=== PATIENT | male | born 1975 | race African-American/Black ===

== ENCOUNTER 2020-08-28 11:37 | Inpatient (IN) | payer SELFPAY ==
[~2020-08-28] VITALS: Ht 177.8 cm; Wt 99.7 kg
[2020-08-28] VITALS (38 sets, daily range): BP systolic 78–219; BP diastolic 63–153; Ht 177.8 cm; Wt 99.7 kg
--- NOTE | 2020-08-28 11:38 | NUR ---
SALINE LOCK IN PLACE BY EMS. LEFT AC 20GA.
[2020-08-28 12:04] LABS: BASOPHILS 0.1 % (0-2); EOSINOPHILS 0.4 % (0-7); HEMATOCRIT 50.5 % (42.0-54.0); HEMOGLOBIN 16.8 g/dL (13.5-17.5); IMMATURE GRANULOCYTES 0.1 % (0-5); LYMPHOCYTE ABS# 3.81 10x3/uL (1.32-3.57); LYMPHOCYTES 41.6 % (15-50); MCH 30.1 pg (26.0-34.0); MCHC 33.3 g/dL (31.0-37.0); MCV 90.3 fL (80.0-100.0); MONOCYTES 5.2 % (2-11); NEUTROPHIL ABS# 4.81 10x3/uL (1.78-5.38); NEUTROPHILS 52.6 % (40-80); PLATELET COUNT 268 10x3/uL (130-400); RBC 5.59 10x6/uL (4.20-6.10); RDW 13.3 % (11.5-14.5); WBC 9.2 10x3/uL (4.8-10.8)
[2020-08-28 12:22] LABS: CALC OSMOLALITY 269 mosm/kg (275-300); CALCIUM 9.4 mg/dL (8.5-10.1); CARBON DIOXIDE 25.4 mmol/L (21.0-32.0); CHLORIDE - SERUM 100 mmol/L (98-107); CREATININE - SERUM 1.7 mg/dL (0.6-1.3); GLUCOSE 129 mg/dL (74-106); POTASSIUM - SERUM 4.3 mmol/L (3.5-5.1); SODIUM 134 mmol/L (136-145); UREA NITROGEN 12 mg/dL (7-18); eGFR NON AFRICAN AMERICAN 46 mL/min (90-120)
[2020-08-28 12:27] LABS: ALBUMIN 3.7 g/dL (3.4-5.0); ALKALINE PHOSPHATASE 90 U/L (30-120); ALT (SGPT) 26 U/L (10-68); AMYLASE - SERUM 101 U/L (25-115); LIPASE 88 U/L (73-393); PROTEIN - SERUM 8.1 g/dL (6.4-8.2); TROPONIN-I < 0.017 ng/mL (0.000-0.060)
--- NOTE | 2020-08-28 13:05 | NUR ---
TO CT VIA WHEELCHAIR.
[2020-08-28 14:47] LABS: BILIRUBIN NEGATIVE (NEGATIVE); KETONE NEGATIVE (NEGATIVE); NITRITE NEGATIVE (NEGATIVE); UROBILINOGEN NORMAL mg/dL (< 2)
--- NOTE | 2020-08-28 15:50 | NUR ---
NIPRIDE DRIP STARTED TO LEFT AC SITE AT 0.25MCG/KG/MIN (3.2 ML/HR VIA PUMP). BP
--- NOTE | 2020-08-28 15:58 | NUR ---
NIPRIDE ICREASED TO .3MCG/KG/MIN. BP 152/118. TEACHING ON HYPERTENSIVE CRISIS, ADMISSION TO ICU DUE TO NIPRIDE DRIP AND RISKS FOR KIDNEY DAMAGE, HEART DISEASE AND STROKE WITH HIS LEVEL OF HTN.
--- NOTE | 2020-08-28 16:05 | NUR ---
BP 170/116. NIPRIDE INCREASED TO .75MCG/KG/MIN.
--- NOTE | 2020-08-28 16:10 | NUR ---
NIPRIDE INCREASED TO 1.25MCG/KG/MIN. BP 190/118.
--- NOTE | 2020-08-28 16:15 | NUR ---
BP 157/91. NO CHANGE TO NIPRIDE DRIP.
--- NOTE | 2020-08-28 16:30 | NUR ---
BP 143/92. NO CHANGE IN NIPRIDE DRIP.
[2020-08-28] MEDS ORDERED: LISINOPRIL10 MG PO (17:13)
--- NOTE | 2020-08-28 17:55 | NUR ---
DR TURPIN CALLED GIVEN UPDATE REGAURDING CONSULT. NO NEW ORDERS RECEIVED
[2020-08-29] VITALS (45 sets, daily range): BP systolic 118–166; BP diastolic 63–103
[2020-08-29 03:49] LABS: UDS - AMPHET POSITIVE QUAL (NEGATIVE); UDS - BARB NEGATIVE QUAL (NEGATIVE); UDS - BENZO NEGATIVE QUAL (NEGATIVE); UDS - COCAINE NEGATIVE QUAL (NEGATIVE); UDS - OPIATE POSITIVE QUAL (NEGATIVE); UDS - PCP NEGATIVE QUAL (NEGATIVE); UDS - THC POSITIVE QUAL (NEGATIVE)
[2020-08-29 05:25] LABS: BASOPHILS 0.2 % (0-2); HEMATOCRIT 44.6 % (42.0-54.0); HEMOGLOBIN 14.5 g/dL (13.5-17.5); IMMATURE GRANULOCYTES 0.1 % (0-5); LYMPHOCYTE ABS# 3.91 10x3/uL (1.32-3.57); LYMPHOCYTES 41.6 % (15-50); MCH 29.3 pg (26.0-34.0); MCHC 32.5 g/dL (31.0-37.0); MCV 90.1 fL (80.0-100.0); MEAN PLATELET VOLUME 13.2 fL (7.4-10.4); MONOCYTES 9.6 % (2-11); NEUTROPHIL ABS# 4.46 10x3/uL (1.78-5.38); NEUTROPHILS 47.5 % (40-80); PLATELET COUNT 271 10x3/uL (130-400); RBC 4.95 10x6/uL (4.20-6.10); RDW 13.7 % (11.5-14.5); WBC 9.4 10x3/uL (4.8-10.8)
[2020-08-29 05:55] LABS: ANION GAP 12.8 mmol/L (8-16); CALCIUM 8.8 mg/dL (8.5-10.1); CARBON DIOXIDE 23.8 mmol/L (21.0-32.0); CREATININE - SERUM 1.6 mg/dL (0.6-1.3); MAGNESIUM - SERUM 1.9 mg/dL (1.8-2.4); PHOSPHOROUS 2.6 mg/dL (2.5-4.9); T4 THYROXIN - FREE 1.25 ng/dL (0.76-1.46); THYROID STIMULATING HORMONE 1.37 uIU/mL (0.36-3.74)
[2020-08-29 05:57] LABS: POTASSIUM - SERUM 3.6 mmol/L (3.5-5.1)
--- NOTE | 2020-08-29 06:15 | NUR ---
Shift Summary: Patient denies pain. Nipride drip continues at 2mcg. Appetite and oral fluids intake good.
--- NOTE | 2020-08-29 08:15 | NUR ---
LYING IN BED RESTING AT THIS TIME, RESPIRATIONS STEADY AND UNLABORED. NO ACUTE DISTRESS NOTED. NIPRIDE GTT TITRATED TO ORDER. WILL CONTINUE PLAN OF CARE.
--- NOTE | 2020-08-29 09:05 | NUR ---
CARL, CARDIOLOGY DANCE COSTUME DESIGNER, HERE TO SEE PT, ORDERS RECIEVED.
--- NOTE | 2020-08-29 09:29 | NUR ---
250ML YELLOW URINE EMPTIED FROM URINAL AT THIS TIME. PT PERFORMED OWN TIFFANIE CARE.
--- NOTE | 2020-08-29 11:31 | NUR ---
PT USED CALL LIGHT TO STATE HE WANTS TO GO HOME. PT EDUCATION PERFORMED THAT HE IS ON A NIPRIDE GTT TO HELP BRING HIS BLOOD PRESSURE DOWN WELL OTHER MEDICATIONS TO HELP WITH HIS HYPERTENSION AND IT WOULD BE UNSAFE FOR HIM TO LEAVE AMA. I ALSO DISCUSSED WITH HIM POTENTIAL COMPLICAITONS OF UNCONTROLLED HYPERTENSION AND HE STATED, "THAT JUST MEANS IT COULD HAPPEN THAT DOES NOT MEAN IT WILL HAPPEN TO ME." HE THEN INFORMED ME THAT HE IS CALLING HIS GIRLFRIEND TO SEE IF SHE CAN COME PICK HIM UP. I ENCOURAGED HIM TO STAY LONG ENOUGH FOR US TO TALK WITH CARDIOLOGY AGAIN TO SEE IF CARLMACEY DE SANTIAGO IS STILL IN THE HOSPITAL TO COME SPEAK WITH HIM. I ALSO ENCOURAGED HIM TO STAY IN THE HOSPITAL SO THAT HE CAN CONTINUE TO RECIEVE CARE. HE STATED HE STILL WANTS TO LEAVE. HE IS ALERT AND ORIENTED X 4. CARL DE SANTIAGO PAGED, WAITING FOR CALLBACK.
--- NOTE | 2020-08-29 11:45 | NUR ---
SPOKE WITH CARL ARCHIBALD APRN WITH CARDIOLOGY, TO NOTIFY OF PT WANTING TO LEAVE AMA AND THAT ALL RISKS AND COMPLICATIONS RELATING TO LEAVING WELL BENIFITS OF STAYING EXPLAINED TO HIM. CARL STATES PT IS ALERT AND ORIENTED AND UNDERSTANDS THE SITUATION AND IF HE WANTS TO LEAVE AMA THEN HE IS FREE TO LEAVE AMA.
--- NOTE | 2020-08-29 11:56 | NUR ---
PT SIGNED AMA PAPERWORK, IV TO RT AC DCD CATHETER TIP INTACT. PT PICKED UP BY GIRLFRIEND. PT DRESSED SELF AND WALKED OFF THE UNIT. NO FURTHER ACTIONS.
== END 2020-08-29 11:57 | disposition left against medical advice (07) | DRG 304 ==
LOC: D.ER 11:37 → D.ICU 15:47
PROVIDERS: Family Medicine; ADMIT Family Medicine; ATTEND Family Medicine
DX: I16.1 Hypertensive emergency (principal); K85.90 Acute pancreatitis without necrosis or infection, unspecified; N17.9 Acute kidney failure, unspecified; Z53.29 Procedure and treatment not carried out because of patient's decision for other reasons